=== PATIENT | female | born 1930 ===

== ENCOUNTER → 2017-07-04 | Emergency (ER) | payer OTHER ==
[~2017-07-04] VITALS: Ht 157.5 cm; Wt 80.7 kg
[~2017-07-04] MED LIST: AMLODIPINE BESY10 MG; GALANTAMINE HBR24 MG; LACTULOSE10 GM/15 M PO; METOPROLOL TAR100 MG; PRAVASTATIN SOD40 MG; SERTRALINE HCL50 MG; ZANTAC300 MG PO
== END | disposition home or self-care (01) ==
LOC: ER 18:23
DX: K59.00 Constipation, unspecified (principal); K62.89 Other specified diseases of anus and rectum; N39.0 Urinary tract infection, site not specified

== ENCOUNTER 2017-07-08 13:08 | Inpatient (IN) | payer OTHER ==
[~2017-07-08] VITALS: Ht 157.5 cm; Wt 80.7 kg
== END 2017-07-14 22:35 | disposition expired | DRG 356 ==
LOC: ER 13:08 → ICU 20:30 → MEDJ 20:30 → SEC-K 20:30 → MEDI 07-09 13:10 → MEDJ 07-09 13:10 → ICU 07-12 23:22
PROVIDERS: Specialist
PROC: B54DZZZ Ultrasonography of Bilateral Lower Extremity Veins (ICD-10-PCS; 2017-07-08)
PROC: 0JBB0ZZ Excision of Perineum Subcutaneous Tissue and Fascia, Open Approach (ICD-10-PCS; 2017-07-09)
PROC: 0J9B0ZX Drainage of Perineum Subcutaneous Tissue and Fascia, Open Approach, Diagnostic (ICD-10-PCS; principal; 2017-07-09 18:00)
PROC: 4A033R1 Measurement of Arterial Saturation, Peripheral, Percutaneous Approach (ICD-10-PCS; 2017-07-12)
PROC: 3E0336Z Introduction of Nutritional Substance into Peripheral Vein, Percutaneous Approach (ICD-10-PCS; 2017-07-12)
PROC: 4A12X4Z Monitoring of Cardiac Electrical Activity, External Approach (ICD-10-PCS; 2017-07-12)
PROC: 0JBL0ZZ Excision of Right Upper Leg Subcutaneous Tissue and Fascia, Open Approach (ICD-10-PCS; 2017-07-14)
PROC: 0H9HXZX Drainage of Right Upper Leg Skin, External Approach, Diagnostic (ICD-10-PCS; 2017-07-14)
PROC: 02HV33Z Insertion of Infusion Device into Superior Vena Cava, Percutaneous Approach (ICD-10-PCS; 2017-07-14)
PROC: 5A09457 Assistance with Respiratory Ventilation, 24-96 Consecutive Hours, Continuous Positive Airway Pressure (ICD-10-PCS; 2017-07-14)
DX: K61.3 Ischiorectal abscess (principal); A41.9 Sepsis, unspecified organism; R65.21 Severe sepsis with septic shock; L03.115 Cellulitis of right lower limb; N39.0 Urinary tract infection, site not specified; I10 Essential (primary) hypertension; Z74.01 Bed confinement status; F03.90 Unspecified dementia, unspecified severity, without behavioral disturbance, psychotic disturbance, mood disturbance, and anxiety; K59.09 Other constipation; B96.4 Proteus (mirabilis) (morganii) as the cause of diseases classified elsewhere; B96.20 Unspecified Escherichia coli [E. coli] as the cause of diseases classified elsewhere; B95.2 Enterococcus as the cause of diseases classified elsewhere; S70.321A Blister (nonthermal), right thigh, initial encounter; B96.5 Pseudomonas (aeruginosa) (mallei) (pseudomallei) as the cause of diseases classified elsewhere; N76.89 Other specified inflammation of vagina and vulva